=== PATIENT | male | born 1975 | race Caucasian/White ===

== ENCOUNTER 2017-07-13 07:32 | Outpatient (CLI) | payer BC ==
--- NOTE | 2017-07-13 09:40 | CT ---
LUMBAR SPINE CT WITHOUT CONTRAST: Date: 07/13/17 HISTORY: Low back pain x2 years. COMPARISON: None. TECHNIQUE: Lumbar spine CT is performed without contrast. Reformatted images are submitted for interpretation. FINDINGS: No retroperitoneal mass, lymphadenopathy, or hematoma. Symmetric attenuation of the psoas muscles. Visualized alimentary canal is unremarkable. Visualized aorta has a normal caliber. The overall AP diameter of the central spinal canal is slightly diminutive due to congenitally fores hortened pedicles. Lumbar spine vertebral body height is maintained. No fracture. There is evidence of osteophyte forma tion. No spondylolisthesis. No spondylolysis. T11-T12 and T12-L1: Broad based disc osteophyte complexes with posterior element hypertrophy. Moderate central canal ranjeet nosis at both levels. Moderate bilateral foraminal narrowing at T11-T12 and mild to moderate bilater al foraminal narrowing at T12-L1. L1-L2: Generalized disc bulge with mild central canal stenosis. Mild bilateral foraminal narrowing. L2-L3: Generalized disc bulge. No high grade central canal stenosis. Mild to moderate bilateral foraminal n arrowing. L3-L4: Generalized disc bulge. Mild central canal stenosis. Moderate bilateral foraminal narrowing. L4-L5: Generalized disc bulge, ligamentum flavum thickening, and facet hypertrophy result in moderate centr al canal stenosis. Narrowing of both subarticular zones. Severe right and moderate to severe left fo raminal narrowing. L5-S1: Mild loss of disc space height. No high grade central canal stenosis. Moderate to severe bilateral f oraminal narrowing. IMPRESSION: Degenerative changes of the lumbar spine as above. POS: [facility]
== END 2017-07-13 07:33 | disposition home or self-care (01) ==
LOC: CT 07:32
PROVIDERS: ATTEND Neurological Surgery
DX: M54.5 Low back pain (principal); M47.896 Other spondylosis, lumbar region
CPT/HCPCS: 72131

== ENCOUNTER 2024-08-14 08:44 | Outpatient (CLI) | payer OTHER, SELFPAY ==
[2024-08-14 09:56] LABS: #Basophils 0.03 10x3/uL (0.0-0.2); %Basophils 0.8 % (0.0-1.0); %Eosinophils 1.8 % (0.0-10.0); %Lymphocytes 29.1 % (21.0-51.0); %Monocytes 9.2 % (0.0-10.0); %Neutrophils 59.1 % (42.0-75.0); Hematocrit 46.5 % (42.0-52.0); Hemoglobin 16.2 g/dL (14.0-18.0); Mean Corpuscular HGB CONC 34.8 g/dL (32.0-36.0); Mean Corpuscular Hemoglobin 31.8 pg (27.0-31.0); Mean Corpuscular Volume 91.4 fL (78.0-98.0); Mean Platelet Volume 9.4 fL (7.4-10.4); Platelet Count 223 10x3/uL (130-400); RBC Distribution Width 12.9 % (11.5-14.5); Red Blood Cell (RBC) Count 5.09 mill/uL (4.70-6.10)
[2024-08-14 10:11] LABS: Hemoglobin A1c 5.3 % (4.0-6.0)
[2024-08-14 10:14] LABS: ALT (SGPT) 26 U/L (8-55); AST (SGOT) 19 U/L (5-34); Albumin 3.7 g/dL (3.5-5.0); Alkaline Phosphatase 88 U/L (40-110); Anion Gap 13 mmol/L (10-20); BUN (Urea Nitrogen) 11 mg/dL (8.9-20.6); Bilirubin, Total 0.4 mg/dL (0.2-1.2); Calc. Creatinine Clearance 0 mL/min (70-130); Calcium 9.6 mg/dL (7.8-10.44); Carbon Dioxide 25 mmol/L (22-29); Chloride 105 mmol/L (98-107); Estimated GFR 109; Globulin 3.7 g/dL (2.4-3.5); Glucose 101 mg/dL (70-105); Potassium 4.3 mmol/L (3.5-5.1); Protein, Total 7.4 g/dL (6.0-8.3); Sodium 139 mmol/L (136-145)
== END 2024-08-14 08:45 | disposition home or self-care (01) ==
LOC: LABBT 08:44
PROVIDERS: ATTEND Specialist
DX: Z01.818 Encounter for other preprocedural examination (principal); E66.01 Morbid (severe) obesity due to excess calories
CPT/HCPCS: 80053; 83036; 85025; 93005; 93010